=== PATIENT | male | born 1950 | race Caucasian/White ===

== ENCOUNTER 2017-05-29 20:46 | Emergency (ER) | payer MEDICARE, MEDICAID ==
[~2017-05-29] VITALS: Ht 165.1 cm; Wt 82.5 kg
[2017-05-29 21:10] VITALS: BP 152/68; Ht 165.1 cm; Wt 82.5 kg
[2017-05-30] MEDS ORDERED: NOR5 PO (17:56)
[2017-05-30] MEDS ORDERED: DIAZEPAM2 MG PO (17:57)
[2017-05-30] MEDS ORDERED: GAVISCON ESRF360 ML PO (17:58)
[2017-05-30] MEDS ORDERED: LACTULOSE10 GM/152 PO (17:58)
[2017-05-30] MEDS ORDERED: LOSARTAN POTAS100 M1 PO (17:59)
[2017-05-30] MEDS ORDERED: LORAZEPAM0.5 MG PO (17:59)
[2017-05-30] MEDS ORDERED: OMEPRAZOLE20 M4 PO (18:00)
[2017-05-30] MEDS ORDERED: [UNRECOGNIZED DRUG - OTHER] PO (18:00)
[2017-05-30] MEDS ORDERED: AMITRIPTYLINE PO (18:00)
[2017-05-30] MEDS ORDERED: SIMVASTATIN10 M1 PO (18:02)
[2017-05-30] MEDS ORDERED: TAMSULOSIN HYD0.4 M1 PO (18:02)
[2017-05-30] MEDS ORDERED: AMLODIPINE BESYL5 M2 PO (18:07)
[2017-05-30] MEDS ORDERED: MONTELUKAST SOD10 M1 PO (18:13)
== END 2017-05-30 03:51 | disposition left against medical advice (07) ==
LOC: ED 20:46
DX: Z53.21 Procedure and treatment not carried out due to patient leaving prior to being seen by health care provider (principal)

== ENCOUNTER 2017-05-30 12:05 | Inpatient (IN) | payer MEDICAID, MEDICARE ==
[~2017-05-30] VITALS: Ht 157.5 cm; Wt 81.4 kg
[2017-05-30 15:37] LABS: CALCIUM 8.9 mg/dL (8.5-10.1); CARBON DIOXIDE 22.3 mmol/L (21-32); CHLORIDE SERUM 106 mmol/L (98-107); GFR1 > 60 mL/min; GLUCOSE SERUM 102 mg/dL (74-106); POTASSIUM SERUM 4.1 mmol/L (3.5-5.1); SODIUM SERUM 139 mmol/L (136-145)
[2017-05-30 15:42] LABS: ALBUMIN 4.1 g/dL (3.4-5.0); ALKALINE PHOSPHATASE 87 U/L (46-116); ALT/SGPT 21 U/L (16-63); AST/SGOT 14 U/L (15-37); BILIRUBIN TOTAL 1.02 mg/dL (0.20-1.00); TOTAL PROTEIN, SERUM 7.1 g/dL (6.4-8.2)
[2017-05-30 15:52] LABS: BASOPHIL % 0.5 % (0-2); PLATELET COUNT 287 x10^3mcL (130-400); RED CELL DISTRIBUTION WIDTH 13.6 % (11.5-14.5)
[2017-05-30] MEDS ORDERED: NOR5 PO (17:56)
[2017-05-30] MEDS ORDERED: DIAZEPAM2 MG PO (17:57)
[2017-05-30] MEDS ORDERED: GAVISCON ESRF360 ML PO (17:58)
[2017-05-30] MEDS ORDERED: LACTULOSE10 GM/152 PO (17:58)
[2017-05-30] MEDS ORDERED: LORAZEPAM0.5 MG PO (17:59)
[2017-05-30] MEDS ORDERED: LOSARTAN POTAS100 M1 PO (17:59)
[2017-05-30] MEDS ORDERED: AMITRIPTYLINE PO (18:00)
[2017-05-30] MEDS ORDERED: OMEPRAZOLE20 M4 PO (18:00)
[2017-05-30] MEDS ORDERED: [UNRECOGNIZED DRUG - OTHER] PO (18:00)
[2017-05-30 18:01] LABS: microscopic required? NO
[2017-05-30] MEDS ORDERED: SIMVASTATIN10 M1 PO (18:02)
[2017-05-30] MEDS ORDERED: TAMSULOSIN HYD0.4 M1 PO (18:02)
[2017-05-30] MEDS ORDERED: AMLODIPINE BESYL5 M2 PO (18:07)
[2017-05-30] MEDS ORDERED: MONTELUKAST SOD10 M1 PO (18:13)
[2017-05-30 18:38] LABS: urine erythrocyte NEGATIVE (NEGATIVE)
[2017-05-30 19:02] LABS: AMPHETAMINE QUAL UR NONE DETECTED (NEG <=1000)
[2017-05-30 20:54] VITALS: BP 113/62
[2017-05-30 21:50] LABS: CHOLESTEROL/HDL RATIO 3.5
[2017-05-30 21:56] LABS: T3 TOTAL 1.03 ng/mL
[2017-05-30 22:02] LABS: FREE T4 1.19 ng/dL (0.76-1.46); FREE THYROXINE INDEX 3.4 ug/dL (1.4-4.5); T4(THYROXINE) 9.7 ug/dL (4.7-13.3)
[2017-05-31 06:00] VITALS: BP 135/67
[2017-05-31 07:04] LABS: BASOPHIL % 0.3 % (0-2); PLATELET COUNT 250 x10^3mcL (130-400); RED CELL DISTRIBUTION WIDTH 13.1 % (11.5-14.5)
[2017-05-31 07:26] LABS: CALCIUM 8.1 mg/dL (8.5-10.1); CARBON DIOXIDE 22.4 mmol/L (21-32); CHLORIDE SERUM 110 mmol/L (98-107); CREATININE SERUM 0.9 mg/dL (0.7-1.3); GFR1 > 60 mL/min; GLUCOSE SERUM 82 mg/dL (74-106); MAGNESIUM 2.1 mg/dL (1.8-2.4); SODIUM SERUM 143 mmol/L (136-145)
[2017-05-31 10:32] VITALS: BP 127/61
[2017-05-31 14:30] VITALS: BP 151/69
== END 2017-05-31 17:05 | disposition left against medical advice (07) | DRG 203 ==
LOC: ED 12:05 → DU 17:25
PROVIDERS: Emergency Medicine; Student in an Organized Health Care Education/Training Program
DX: M94.0 Chondrocostal junction syndrome [Tietze] (principal); I10 Essential (primary) hypertension; J06.9 Acute upper respiratory infection, unspecified; K21.9 Gastro-esophageal reflux disease without esophagitis; E80.6 Other disorders of bilirubin metabolism; E78.5 Hyperlipidemia, unspecified; G47.00 Insomnia, unspecified; N40.0 Benign prostatic hyperplasia without lower urinary tract symptoms
CPT/HCPCS: 83880; 84439; J7030; J8597; Q0092